=== PATIENT | female | born 1980 | race Caucasian/White ===

== ENCOUNTER 2017-02-09 13:13 | Emergency (ER) | payer BC, OTHER | END 2017-02-09 13:30 | disposition home or self-care (01) | LOC: CFTX 13:13 | DX: T23.102A Burn of first degree of left hand, unspecified site, initial encounter (principal); T31.0 Burns involving less than 10% of body surface; I50.9 Heart failure, unspecified; Z88.0 Allergy status to penicillin; X18.XXXA Contact with other hot metals, initial encounter | CPT/HCPCS: 99283 ==